=== PATIENT | female | born 1955 | race Caucasian/White ===

== ENCOUNTER 2022-08-16 08:04 | Emergency (ER) | payer MEDICARE, SELFPAY ==
--- NOTE | ~2022-08-16 | XR_ITS ---
EXAMINATION: [id number] DATE: 08/16/2022 08:42 INDICATION: Right anterior rib pain post fall 2 days prior TECHNIQUE: A frontal inspiratory view of the chest and 3 views of the right ribs were obtained. COMPARISON: None FINDINGS: Age indeterminate nondisplaced fractures of the anterior right sixth-ninth ribs. Additional minimally displaced old healed fractures at the posterolateral right fourth and fifth ribs. There are couple a dditional likely old healed minimally displaced fractures of the lateral left sixth and seventh ribs. Linear opacities in the right mid and bilateral lower lung zones consistent with discoid atelectasis which may be related to splinting. No pulmonary edema, pleural effusion or pneumothorax. The mediast inal silhouette is normal. IMPRESSION: 1. Several bilateral rib fractures as detailed above, some of which appear chronic however fractures of the anterior right sixth-ninth ribs are age indeterminate. 2. Discoid atelectasis in the right mid and bilateral lower lung zones which could be due to splintin g. No pneumothorax or pleural effusion. Reviewed, dictated and finalized at location A. IMPRESSION: 1. Several bilateral rib fractures as detailed above, some of which appear pasting inspector crow however fractures of the anterior right sixth-ninth ribs are age indetermin ate. 2. Discoid atelectasis in the right mid and bilateral lower lung zones which co uld be due to splinting. No pneumothorax or pleural effusion.
[2022-08-16 08:16] VITALS: BP 236/125; PULSE 90; RESP 16; TEMP 36.7; O2SAT 99
--- NOTE | 2022-08-16 08:31 | ED.BACK ---
HPI - Back Pain/Injury General Chief Complaint: Fall Stated Complaint: right side rib pain Time Seen by Provider: 08/16/22 08:15 Source: patient Mode of arrival: ambulatory Limitations: no limitations History of Present Illness HPI Narrative: 67-year-old female presented for complaint of right anterior lower rib pain after a fall 2 days ago. Prior to the fall she felt sick and dizzy, she walked downstairs and that is all she remembers. She states her family heard her fall and came to her quickly. She states she was unconscious for approximately 1 minute and vomited upon awakening. Her son-in-law is a nurse and triaged her stating she believes she hit the right side of her head on the wooden floor and the ribs on the bookshelf. Denies chest pain, palpitations, shortness of breath prior to the syncopal episode. Patient states she had been out of all of her medications and took them all on Wednesday which she relates to causing the syncopal episode, stating the increased dose of sertraline for the last few months has made her ill. Therefore she did not take any of the medications yesterday or today. BP upon arrival 236/125. Rating rib pain 10/10. Endorses pain with deep inspiration or coughing. Taking Tylenol for symptoms without improvement. No current complaints of nausea, vomiting, dizziness, headache, confusion, chest pain, palpitations, wheezing, or shortness of breath. States she has low blood count and has required transfusions in the past. HX: HTN, anemia, GI bleed, 'brittle bones.' Smokes 1/2PPD. Related Data Home Medications Medication Instructions Recorded Confirmed amlodipine 10 mg tablet 10 mg PO DAILY 08/16/22 08/16/22 atorvastatin 40 mg tablet 40 mg PO DAILY 08/16/22 08/16/22 baclofen 10 mg tablet 10 mg PO DAILY 08/16/22 08/16/22 lisinopril 40 mg tablet 40 mg PO DAILY 08/16/22 08/16/22 metoprolol tartrate 50 mg tablet 50 mg PO DAILY 08/16/22 08/16/22 pantoprazole 40 mg tablet,delayed 40 mg PO DAILY 08/16/22 08/16/22 release sertraline 100 mg tablet 100 mg PO DAILY 08/16/22 08/16/22 Allergies Allergy/AdvReac Type Severity Reaction Status Date / Time codeine Allergy Intermediate rash Verified 08/16/22 08:07 Penicillins Allergy Intermediate rash Verified 08/16/22 08:07 Review of Systems Review of Systems: CONSTITUTIONAL: Denies body aches, fever, chills, or sweats. EYES: Denies visual changes, redness, or discharge. ENT: Denies rhinorrhea, epistaxis, congestion, or otalgia. CARDIOVASCULAR: Denies chest pain, palpitations, or edema. RESPIRATORY: Denies dyspnea. GASTROINTESTINAL: Denies abdominal pain, nausea, vomiting, or diarrhea. GENITOURINARY: Denies dysuria or hematuria. SKIN: Denies rash, itching, or wounds. MUSCULOSKELETAL: Reports rib pain; Denies back pain, neck pain, or myalgia. NEUROLOGIC: Denies headache, numbness, tingling, or weakness. All systems reviewed & are unremarkable except as noted in HPI and below PMFSH Comments At time of signature, I have reviewed and agree with nursing past medical, surgical, social and family history unless otherwise noted. Please see nursing chart for further information. There is no relevant family history pertinent to the presenting complaint Exam Narrative: GENERAL: ill-appearing, in no acute distress. HEAD: Normocephalic, atraumatic. EYES: EOMI. PERRLA; No redness or drainage. Conjunctivae normal. ENT: Mucous membranes pink and moist. No rhinorrhea. NECK: Normal AROM. Supple. No vertebral point tenderness CHEST: No respiratory distress. Clear to auscultation. HEART: Regular rate and rhythm. No murmur appreciated. Normal peripheral pulses. ABDOMEN: Soft, nontender, nondistended, normal active bowel sounds. MUSCULOSKELETAL: right anterior rib pain with palpation approx ribs 5-6, no bruising or apparent deformity EXTREMITIES: Normal range of motion. No edema. SKIN: Warm, dry, no rash. Capillary refill normal. Normal skin turgor. NEURO: No focal deficits. Carol
--- NOTE | 2022-08-16 09:07 | ECG_ITS ---
Measurements Intervals Reeves Rate: 89 P: 55 KS: 190 QRS: 22 QRSD: 77 T: 73 QT: 333 QTc: 406 Interpretive Statements SINUS RHYTHM WITH OCCASIONAL SUPRAVENTRICULAR PREMATURE COMPLEXES MINIMAL VOLTAGE CRITERIA FOR LVH, CONSIDER NORMAL VARIANT NONSPECIFIC ST ABNORMALITY BORDERLINE ECG NO PREVIOUS ECG AVAILABLE FOR COMPARISON Electronically Signed On 08-17-2022 16:02:15 CDT by Chidi Burch M.D.
[2022-08-16 09:28] VITALS: BP 238/140
== END 2022-08-16 09:28 | disposition left against medical advice (07) ==
PROVIDERS: Emergency Provider Nurse Practitioner Family
DX: R55 Syncope and collapse (principal); E78.00 Pure hypercholesterolemia, unspecified; I10 Essential (primary) hypertension; F41.9 Anxiety disorder, unspecified; F32.A Depression, unspecified
CPT/HCPCS: 71101; 93005; 99213; G0463